=== PATIENT | female | born 1980 | race American Indian/Alaskan Native ===

== ENCOUNTER → 2018-08-07 16:34 | Outpatient (CLI) | payer OTHER, SELFPAY ==
[2018-08-07 18:40] LABS: Rubella Antibody IgG 25.7 IU/mL (>15)
== END ==
PROVIDERS: Visit Provider Nurse Practitioner
DX: Z01.84 Encounter for antibody response examination (principal)
CPT/HCPCS: 36415; 86735; 86762; 86765; 86787

== ENCOUNTER → 2021-01-16 13:25 | Outpatient (CLI) | payer OTHER, SELFPAY ==
[2021-01-16 13:37] LABS: Specimen Label KIT TEST
== END ==
PROVIDERS: Referring Provider Specialist; Visit Provider Specialist
DX: Z34.81 Encounter for supervision of other normal pregnancy, first trimester (principal); Z36.0 Encounter for antenatal screening for chromosomal anomalies
CPT/HCPCS: 36415

== ENCOUNTER → 2021-01-29 08:37 | Outpatient (CLI) | payer OTHER, SELFPAY ==
[2021-01-29 13:34] LABS: Appearance Urine UA CLEAR; Bilirubin Urine UA NEGATIVE (NEGATIVE); Color Urine UA YELLOW; Glucose Urine UA NEGATIVE (Negative); Ketones Urine UA NEGATIVE (NEGATIVE); Leukocyte Esterase Urine UA NEGATIVE (NEGATIVE); Nitrite Urine UA NEGATIVE (Negative); Occult Blood Urine UA NEGATIVE (Negative); Protein Urine UA NEGATIVE (Negative); Urobilinogen Urine UA 0.2 E.U./dL (0.2)
[2021-01-29 13:46] LABS: pH Urine UA 7.5 (4.5-8.0)
== END ==
PROVIDERS: Visit Provider Specialist
DX: Z34.81 Encounter for supervision of other normal pregnancy, first trimester (principal)
CPT/HCPCS: 81003; 87086

== ENCOUNTER → 2021-01-29 08:39 | Outpatient (CLI) | payer OTHER, SELFPAY ==
[2021-01-29 09:12] LABS: Add Manual Diff / Slide Review NO; Basophils Absolute Auto 0 /uL (0-100); Basophils Percent Auto 0.3 % (0-2); Eosinophils Absolute Auto 0 /uL (0-450); Eosinophils Percent Auto 0.4 % (2-4); Hematocrit 32.9 % (36-46); Hemoglobin 11.4 g/dL (12.0-16.0); Lymphocytes Absolute Auto 1300 /uL (1100-4500); Lymphocytes Percent Auto 16.5 % (25-40); Mean Corpuscular HGB Conc 34.6 % (30-36); Mean Corpuscular Hemoglobin 33.9 PG (26-34); Mean Corpuscular Volume 98.1 fL (80-100); Monocytes Absolute Auto 400 /uL (0-900); Monocytes Percent Auto 5.3 % (3-14); Neutrophils Absolute Auto 6100 /uL (1500-7000); Neutrophils Percent Auto 77.5 % (50-75); Platelet Count 207 X10^3/uL (150-400); Red Blood Cell Count 3.36 X10^6/uL (4.0-5.2); Red Cell Distribution Width 13.1 % (11.6-14.8); White Blood Cell Count 7.9 X10^3/uL (4.5-11.0)
[2021-01-29 10:48] LABS: Hepatitis B Surface Antigen NEGATIVE s/c (NEGATIVE)
[2021-01-29 11:03] LABS: HIV 1 & 2 Ab/Ag 4th Gen Combo NEGATIVE (NEGATIVE); Hep C Virus Ab w/Reflex Quant NEGATIVE s/c (NEGATIVE)
[2021-01-30 05:03] LABS: RPR Screen Non Reactive (Non Reactive)
[2021-01-30 09:03] LABS: Varicella IgG Antibody >4000 index (Immune >165)
[2021-01-31 13:42] LABS: Rubella Antibody IgG 18.8 IU/mL (>15)
== END ==
PROVIDERS: Referring Provider Specialist; Visit Provider Specialist
DX: Z34.81 Encounter for supervision of other normal pregnancy, first trimester (principal)
CPT/HCPCS: 36415; 80055; 81003; 86787; 86803; 86850; 86900; 86901; 87086; 87389

== ENCOUNTER → 2021-02-26 10:20 | Outpatient (CLI) | payer OTHER, SELFPAY ==
[2021-03-04 22:06] LABS: AFP Value 34.8 ng/mL (.); Gestational Age EDD (.); Insulin Dep Diabetes No (.); OSBR Risk 1IN 10000 (.); Results Report (.); Test Results *Screen Negative* (.)
== END ==
PROVIDERS: Referring Provider Specialist; Visit Provider Specialist
DX: Z34.82 Encounter for supervision of other normal pregnancy, second trimester (principal); Z3A.16 16 weeks gestation of pregnancy
CPT/HCPCS: 36415; 82105

== ENCOUNTER → 2021-03-26 10:32 | Outpatient (CLI) | payer OTHER, SELFPAY ==
--- NOTE | 2021-03-26 10:33 | DI.US.S_ITS ---
PROCEDURE: US OB >= 14 WEEKS FETUS INDICATIONS: ANATOMY OUTSIDE/PRIOR DATING DATA: Last menstrual period (LMP): Unknown. First dating scan (date): January 29, 2021. Estimated date of delivery (SHAG[place]) from first dating scan: August 10, 2021. TECHNIQUE: Real-time scanning was performed of the fetus, with image documentation and biometric measurements. COMPARISON: [facility], , OB <= 14 WEEKS FETUS, 01/29/2021, 8:23. FINDINGS: General: A single living intrauterine gestation is present. Presentation: Vertex. Placenta: Placental position is posterior , without previa. Lower placental edge 2 cm or less from internal cervical os qualifies as low lying placenta. Amniotic fluid index: 13.2 cm, normal range is 5-24 cm. Single deepest vertical pocket is 3.5 cm. heart rate: 149 beats per minute. Maternal cervical canal: 3.7 cm long. Normal lower limit is 2.5 cm. biometrics: Biparietal diameter: 5 cm Head circumference: 18.1 cm Abdominal circumference: 15.3 cm Femur length: 3.2 cm Clinically estimated gestational age: 20 weeks, 3 days Composite gestational age from present scan: 20 weeks, 4 days Estimated weight and percentile: 345 g +/-51 g; 38th percentile Anatomic survey: Neuro: Ventricles are non-dilated at less than 10 mm. Cisterna magna is normal at 3-11 mm. Cerebellum is normal in size and morphology. Nuchal skin fold: Normal at less than 6 mm between 14-21 weeks gestational age. Face: Nose and lips, facial profile are normal. Spine: No evidence for spina bifida. Heart: 4-chambered heart is present, with normal ventricular outflow tracts. Diaphragm: Diaphragm is intact. Stomach: Left-sided stomach is present. Kidneys: No hydronephrosis. Normal is less than 5 mm in 2nd trimester, less than 7 mm in 3rd trimester. Cord: 3-vessel cord has orthotopic insertion. Bladder: Normal in size. Extremities: All 4 extremities identified. IMPRESSION: Single intrauterine gestation as detailed above. We strive to produce accurate, complete, and clear reports of imaging services. To assist us in improving patient care, this report was composed using standard report templates and voice recognition software. Therefore, it may contain abnormal punctuation, insertions and/or omissions. Occasional wrong-word or sound-alike substitutions may occur. Though we review the report and make efforts to correct it, we do recommend that the report be read carefully in proper context to recognize any text inaccuracies. Dictated by: Scott Posadas M.D. on 03/26/2021 at 12:26 Approved by: Scott Posadas M.D. on 03/26/2021 at 12:29
== END ==
PROVIDERS: PCP Nurse Practitioner; Referring Provider Specialist; Visit Provider Specialist
DX: Z34.82 Encounter for supervision of other normal pregnancy, second trimester (principal); Z3A.20 20 weeks gestation of pregnancy
CPT/HCPCS: 76811

== ENCOUNTER → 2021-04-30 09:15 | Outpatient (CLI) | payer OTHER, SELFPAY ==
[2021-04-30 11:03] LABS: Hematocrit 30.6 % (36-46); Hemoglobin 10.5 g/dL (12.0-16.0)
[2021-04-30 11:22] LABS: GTT (PREG) 1 Hour PP 50gm Dose 107 mg/dL (76-139)
== END ==
PROVIDERS: PCP Nurse Practitioner; Referring Provider Specialist; Visit Provider Specialist
DX: Z34.82 Encounter for supervision of other normal pregnancy, second trimester (principal)
CPT/HCPCS: 36415; 82950; 85014; 85018

== ENCOUNTER → 2021-07-17 14:35 | Outpatient (CLI) | payer OTHER, SELFPAY ==
[2021-07-18 12:39] LABS: Strep Grp B PCR POS for Grp B Strep
== END ==
PROVIDERS: PCP Nurse Practitioner; Visit Provider Specialist
DX: Z36.85 Encounter for antenatal screening for Streptococcus B (principal); Z3A.36 36 weeks gestation of pregnancy
CPT/HCPCS: 87653

== ENCOUNTER 2021-08-06 07:06 | Inpatient (IN) | payer OTHER, SELFPAY ==
[2021-08-06 08:37] LABS: COVID19 -Nasal RAPID Negative (Negative)
[2021-08-06 08:38] LABS: Add Manual Diff / Slide Review NO; Basophils Absolute Auto 0 /uL (0-100); Basophils Percent Auto 0.3 % (0-2); Eosinophils Absolute Auto 100 /uL (0-450); Eosinophils Percent Auto 0.9 % (2-4); Hematocrit 32.6 % (36-46); Hemoglobin 11.5 g/dL (12.0-16.0); Lymphocytes Absolute Auto 1300 /uL (1100-4500); Lymphocytes Percent Auto 21.1 % (25-40); Mean Corpuscular HGB Conc 35.2 % (30-36); Mean Corpuscular Hemoglobin 33.9 PG (26-34); Mean Corpuscular Volume 96.2 fL (80-100); Monocytes Absolute Auto 700 /uL (0-900); Monocytes Percent Auto 10.5 % (3-14); Neutrophils Absolute Auto 4300 /uL (1500-7000); Neutrophils Percent Auto 67.2 % (50-75); Platelet Count 150 X10^3/uL (150-400); Red Cell Distribution Width 13.7 % (11.6-14.8); White Blood Cell Count 6.4 X10^3/uL (4.5-11.0)
[2021-08-06] MEDS: PENICILLIN G POTASSIUM 5,000,000 UNIT in DEXTROSE 5% IN WATER 250 ML 250 UNIT IV (09:01)
[2021-08-06] MEDS: LACTATED RINGERS 1,000 ML 100 ML IV ×2 (09:01→17:09)
[2021-08-06] MEDS: OXYTOCIN PREMIX 30 UNIT/500 ML PLAST..BAG IV (09:47)
--- NOTE | 2021-08-06 10:10 | PM.OBHP.1 ---
OB HPI Date/Time Date of admission: 08/06/21 Date Patient Seen: 08/06/21 Time Patient Seen: 08:00 History of Present Condition Chief complaint: : 4 Para: 2 Estimated Date of Delivery: 08/13/21 Estimated Gestational Age (weeks): 39 Narrative: Lana Hansen is a 41 year old female admitted for induction for advanced maternal age and distance from the hospital Indications Indication for induction OB: maternal distance and other (Advanced maternal age) History of Present care: good care, initiated at week # (12), number of visits (12) and pounds weight gain (35) Dating criteria: based on 1st trimester US only Ultrasounds: normal mid trimester US Obstetrical complications: none Medical complications: none Preadmission Labs Blood type: AB (+) positive -: Antibody screen: negative, GBS status: positive, HBsAG: negative, HIV: negative and RPR/VDLR: negative -: Chlamydia screen: not detected and Gonorrhea screen: not detected -: Rubella: immune and Varicella: immune HCAB: negative Cell-free DNA: normal male 1 hr GTT: 107 Prior (ies) History: Del. DateGA/WeeksLabor LgthBirth WtSexRouteOutcomeAnesthesiaPlace DelvBreastfeedPreg CompName 03/21/04 elective 05/23/11 39.3 30 7 lb Femalevaginallive - full termnoneSwedish 24 mos. noneFinley 02/22/14 40.1 16 8 lb Femalevaginallive - full termnoneProv. 24 mos. none[place] Evaluation Evaluation Baseline heart rate: 140 Variability: Moderate (11-25) monitor accelerations: Present Monitor Decelerations: Absent Category of Tracing: Reactive Status: Category l Dilation (cm): 1 Effacement (%): 80 station: -3 Position of cervix: posterior Consistency: soft [facility] Medical History (Updated 07/31/21 @ 14:56 by Orlando Paniagua MD) Allergies Anemia affecting (~2011) Anxiety (~2011) Chicken pox (~1986) Chronic back pain (~2001) Dermatographia (~2017) Elevated antinuclear antibody (MAGGI) level (~2017) Hemorrhoid (~2001) Migraines (~2013) Restless leg syndrome (~1998) Family History (Updated 01/22/21 @ 16:26 by Nani Fonseca RN) Father Pre-diabetes Hypertension Hyperlipidemia Dementia COPD (chronic obstructive pulmonary disease) Smoker Mother Hypertension Hyperlipidemia Mental health problem Celiac disease Brother Celiac disease Brother Mental health problem Grandfather Stomach problems Social History marital status: number of children: 2 household members: spouse and children lives independently: Yes caregiver/support person: No housing: house pets and animals: Yes (Dog, cat, chickens: safe/aware.) 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) current occupational exposures/hazards: No can/protestant: Pentecost[employer]ism special can needs: No seatbelt use: always helmet use: Yes water heater temp set < 120 deg: Yes working smoke detector in home: Yes fire extinguisher in home: Yes carbon monox detector in home: Yes firearms in home: Yes firearms unloaded and locked: Yes do you feel safe at home: Yes Smoking Status: Never smoker second hand exposure: No alcohol intake: former (Pre-: 1-2 drinks/day) substance use type: does not use during the past year weight has: remained stable well-balanced diet: daily or most days daily servings fruits/ve-4 caffeine: Yes (Cut down with : aware of limits. ) Type(s) of exercise: walking (Treadmill x 45 min at home. ) and other ([employer] instructor twice weekly x 1 hour. ) frequency: 5-6 times per week duration: 60-90 minutes/day Meds Home Medications and Allergies Home Medications Medication Instructions Recorded Confirmed Type diclofenac sodium 1.5 % solution See Rx Instructions TOP .COMPLEX 08/07/18 07/24/21 Rx topical kit #1 each prenat.vits,domonique,[id number]-[id number] 1 tab PO DAILY 01/29/21 07/24/21 History omeprazole 40 mg capsule,delayed 40 mg PO DAILY #30 cap 07/03/21 07/24/21 Rx release Allergies Allergy/AdvReac Type Severity Reaction Status Date / Time gluten AdvReac Diarrhea, Verified 07/24/21 14:13 Upset stomach Review of Systems Review of Systems Narrative: Good movement. No leakage of fluid. No regular contractions. No headaches, scotomata, epigastric pain. OB Exam Narrative Exam Narrative: Blood pressure 127/76, pulse of 80, temperature 36.1? HEENT exam within normal limits. Lungs are clear to auscultation percussion. Heart is regular rate and rhythm no S3-S4 murmurs. Abdomen is gravid. Fetus is vertex. Extremities without edema and nontender. Objective Labs Result Diagrams: 08/06/21 08:25 Labs: Laboratory Results - last 24 hr 08/06/21 08/06/21 08/06/21 07:25 08:25 08:25 WBC 6.4 RBC 3.40 L Hgb 11.5 L Hct 32.6 L MCV 96.2 MCH 33.9 MCHC 35.2 RDW 13.7 Plt Count 150 Neut % (Auto) 67.2 Lymph % (Auto) 21.1 L [place] % (Auto) 10.5 Eos % (Auto) 0.9 L Baso % (Auto) 0.3 Neut # (Auto) 4300 Lymph # (Auto) 1300 [place] # (Auto) 700 Eos # (Auto) 100 Baso # (Auto) 0 SARS-CoV-2 (PCR) Negative Blood Type AB Positive Antibody Screen Negative Assessment and Plan Assessment and Plan Assessment and Plan narrative: 39 week gestation admitted for induction for advanced maternal age and distance from hospital. The patient was agreeable to attempt Marcus bulb. The Marcus bulb was placed but immediately after placement the balloon broke. She will be started on Pitocin. Patient will be started on IV penicillin for positive group B strep culture. Anticipate vaginal delivery. Time Spent with Patient Total time spent with greater than 50% in coordination of care (as documented) at patient's floor/unit and/or counseling patient:: 15-24 minutes
[2021-08-06 10:11] VITALS: BP 127/76
[2021-08-06] MEDS: PENICILLIN G POTASSIUM 3,000,000 UNIT/50 ML FROZ.PIGGY 100 UNIT IV ×2 (13:09→17:08)
--- NOTE | 2021-08-06 19:22 | PM.OBPRVD ---
Labor & Delivery Delivery date: 08/06/21 Intrapartal Events: None Cervical ripening method: none Induction method: per pitocin protocol Delivery monitor: external FHT and external uterine Route of delivery: L&D Laceration Description: Perineal - 1st Degree Delivery repair: chromic (4 0) Estimated blood loss (mL): 100 Anesthesia Type: Local (3 cc of 1% lidocaine) Baby 1: Infant gender: Male Presentation: vertex Position: Right Occiput Anterior Placenta delivery description: Spontaneous Cord Vessel Description: 3 Vessels score (1 min): 8 score (5 min): 9 weight: 8 lb 8 oz Plan for aftercare: Routine care
[2021-08-06] MEDS: ACETAMINOPHEN 325 MG TABLET 650 MG PO (20:05)
[2021-08-06] MEDS: IBUPROFEN 600 MG TABLET PO (20:07)
[2021-08-07] MEDS: ACETAMINOPHEN 325 MG TABLET 650 MG PO ×3 (02:02→16:05)
[2021-08-07] MEDS: IBUPROFEN 600 MG TABLET PO ×3 (02:03→16:06)
[2021-08-07 06:36] LABS: Add Manual Diff / Slide Review NO; Basophils Absolute Auto 0 /uL (0-100); Basophils Percent Auto 0.2 % (0-2); Eosinophils Absolute Auto 100 /uL (0-450); Eosinophils Percent Auto 0.4 % (2-4); Hematocrit 30.6 % (36-46); Hemoglobin 10.7 g/dL (12.0-16.0); Lymphocytes Absolute Auto 1800 /uL (1100-4500); Lymphocytes Percent Auto 12.2 % (25-40); Mean Corpuscular Hemoglobin 33.5 PG (26-34); Mean Corpuscular Volume 95.7 fL (80-100); Monocytes Absolute Auto 1100 /uL (0-900); Monocytes Percent Auto 7.2 % (3-14); Neutrophils Absolute Auto 12000 /uL (1500-7000); Platelet Count 143 X10^3/uL (150-400); Red Cell Distribution Width 13.6 % (11.6-14.8)
[2021-08-07 08:43] VITALS: TEMP 36.8
[2021-08-07 08:44] VITALS: TEMP 36.8
[2021-08-07] MEDS: DERMOPLAST SPRAY 20% 60 ML 1 SPRAY TOP (08:45)
[2021-08-07] MEDS: LANOLIN OINT 7 GM 1 APPLIC TOP (08:45)
--- NOTE | 2021-08-07 13:23 | PM.OBDS.1 ---
Discharge Providers Provider Date of admission: 08/06/21 07:06 Discharge Date: 08/07/21 Primary care physician: REGINALDO Poe Consults: 08/07/21 19:20 Consult to Activity Aid Routine Comment: Discharge provider: Maryan Frias MD Summary Hospital Course Date Patient Seen: 08/07/21 Time Patient Seen: 13:24 Diagnoses: Vaginal delivery Hospital Course: Patient arrived on Labor and delivery for induction for advanced maternal age and distance from the hospital at 39 weeks gestation[address] Attempt to place Marcus bulb for induction cause either rupture membranes or breakage of the balloon. Patient received IV penicillin for positive group B strep culture. Was begun. Patient progressed normally and had a spontaneous vaginal delivery. She had a first-degree perineal tear that was repaired with 4-0 chromic suture. Patient is sore but no significant pain. She is urinating and ambulating well. She is breast-feeding without difficulty. Peripartum Data Delivery Method: Natural Vaginal Laceration Description: Perineal - 1st Degree Procedures: Pitocin induction, IV penicillin for group B strep prophylaxis, spontaneous vaginal delivery with repair of first-degree perineal tear complications: none [place] 1: Gender: Male Disposition of : home Discharge Diagnosis (1) Vaginal delivery: Status: Acute Status at Discharge Cognitive/behavioral status at discharge: oriented Functional status at discharge: independent ambulation Overall status at discharge: patient is progressing back to baseline Time Spent with Patient Time attestation: Total time spent providing and/or coordinating discharge services: Time spent: Less than 30 minutes Objective Labs Result Diagrams: 08/07/21 06:00 Labs: Laboratory Results - last 24 hr 08/07/21 06:00 WBC 15.0 H D RBC 3.20 L Hgb 10.7 L Hct 30.6 L MCV 95.7 MCH 33.5 MCHC 35.0 RDW 13.6 Plt Count 143 L Neut % (Auto) 80.0 H Lymph % (Auto) 12.2 L [place] % (Auto) 7.2 Eos % (Auto) 0.4 L Baso % (Auto) 0.2 Neut # (Auto) 79026 H Lymph # (Auto) 1800 [place] # (Auto) 1100 H Eos # (Auto) 100 Baso # (Auto) 0 Exam Vital Signs (past 8 hours): - 08/07/21 08:43 08/07/21 08:44 Temperature 98.3 F 98.3 F Narrative Exam Narrative: Blood pressure 107/81, pulse 58, temperature 97.6? Abdomen is soft, nontender. Uterus is firm, at U, nontender. Mild lochia. Extremities without edema and nontender. Patient is Rh positive, rubella immune, received Tdap in the 3rd trimester. Discharge Plan Discharge Plan Patient Disposition: Home Discharge orders & Medications Prescriptions: Continued prenat.vits,domonique,[id number] Tablet 1 tab PO DAILY 0RF Discontinued diclofenac sodium 1.5 % kit See Rx Instructions TOP .COMPLEX Qty: 1 2RF Dose Instruction: apply 6 sprays to each affected knee 4 times daily; massage into entire knee area; do not cover until dry topical Rx Instructions: apply 6 sprays to affected area 4 times as day as needed omeprazole 40 mg capsule,delayed release(DR/EC) 40 mg PO DAILY Qty: 30 1RF Follow up/Referrals: Akosua Patiño ARNP [Primary Care Provider] - Maryan Frias MD [Physician] - 1 Month Diet/Activity/Treatments Diet: Regular Activity: Nothing in vagina for 6 weeks Skin/Wound/Dressing Care Report to your healthcare provider any signs of infection, such as:: chills, fever and increased pain Discharge Data Primary Care Provider: Akosua Patiño
[2021-08-07 16:05] VITALS: TEMP 37.1
[2021-08-07 16:06] VITALS: TEMP 37.1
[2021-08-07 16:21] VITALS: BP 102/52; PULSE 60; RESP 18; TEMP 37.1
== END 2021-08-07 19:19 | disposition home or self-care (01) | DRG 807 ==
PROVIDERS: Admitting Provider Specialist; PCP Nurse Practitioner; Referring Provider Specialist; Visit Provider Specialist
DX: O99.824 Streptococcus B carrier state complicating childbirth (principal); Z37.0 Single live birth; O76 Abnormality in fetal heart rate and rhythm complicating labor and delivery; O70.0 First degree perineal laceration during delivery; Z3A.39 39 weeks gestation of pregnancy; Z20.822 Contact with and (suspected) exposure to COVID-19
CPT/HCPCS: 36415; 59050; 59400; 85025; 86850; 86900; 86901; 87635; C9803; G0379; J2540; J2590

== ENCOUNTER → 2023-11-27 12:46 | Outpatient (CLI) | payer OTHER, SELFPAY ==
--- NOTE | 2023-11-27 12:47 | DI.MRI.S_ITS ---
PROCEDURE: MR PELIS WO/W CON INDICATIONS: cystic structure near pubic symphysis TECHNIQUE: Coronal HASTE, sagittal T2 FSE, axial T1 FSE, axial and coronal nonbreath-hold T2 FSE. Axial dynamic VIBE during administration of contrast. Post-contrast axial and coronal VIBE/2-D FLASH with fat saturation from the iliac crests to the symphysis. Optional diffusion weighted imaging and ADC may be performed. COMPARISON: Outside Film, CT, CT PELVIS WITH CONTRAST, 06/28/2023, 16:15. Outside Film, US, US PELVIC LIMITED, 06/12/2023, 9:33. FINDINGS: Image quality: Excellent. Bowel and peritoneum: No pathologic free pelvic fluid. Inferior colon and small bowel loops are normal in caliber. Genitourinary system: Bladder wall is normal in thickness. Distal ureters are non distended. Nodes and vessels: No pathologic pelvic or inguinal adenopathy by size criteria. Iliac vessels are normal in caliber. Soft tissues: In the right canal of Nuck, there is a cystic lesion with serpiginous vessels extending into the right groin (series 4, images 25 through 20). No suspicious enhancement. Bones: Marrow is normal in overall signal. IMPRESSION: In the right canal of Nuck, there is a cystic lesion with serpiginous vessels extending into the right groin. 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 No suspicious enhancement. Consider follow-up in 6 months with ultrasound. Dictated by: Denny Sliveira M.D. on 11/28/2023 at 10:07 Approved by: Denny Silveira M.D. on 11/28/2023 at 10:13
== END ==
LOC: MRI 12:46
PROVIDERS: PCP Nurse Practitioner; Referring Provider Obstetrics & Gynecology; Visit Provider Obstetrics & Gynecology
DX: M24.9 Joint derangement, unspecified (principal); R93.89 Abnormal findings on diagnostic imaging of other specified body structures
CPT/HCPCS: 72197; A9579